=== PATIENT | male | born 1990 | race Two or more races ===

== ENCOUNTER 2020-04-21 16:21 | Inpatient (IN) | payer OTHER ==
[~2020-04-21] VITALS: Ht 193 cm; Wt 133.0 kg
[2020-04-21] MEDS ORDERED: LACTATED RINGERS 1,000 ML IV SCH (16:30)
[2020-04-21] MEDS ORDERED: SODIUM CHLORIDE FLUSH 10ML SYR IVF ONE (16:30)
--- NOTE | 2020-04-21 16:48 | NUR ---
BIBA FROM [place] FOR ABD PAIN, PT FOUND TO HAVE SBO. NG TUBE PLACED IN RIGHT NARE SWING GRINDER, PER EMS REPORT PT HAD 400 ML OUTPUT OF BROWN/BLOODY DRAINAGE. PT HAS HX OF CANCEROUS POLYPS WITH REMOVAL IN 2013, AND NON CANCEROUS POLYPS WITH REMOVAL IN 2018. PT HAS 22 GUAGE PIV PLACED AND RECIEVED 4 MG MORPHINE AND 4MG ZOFRAN AT PREVIOUS FACILITY. PT CURRENTLY HAS NO PAIN IN ABD, JUST COMPLAINTS OF DISCOMFORT FROM NG TUBE PLACEMENT. AT BEDSIDE
[2020-04-21 16:51] LABS: BASOPHILS % (AUTO) 0 % (0-1); EOSINOPHILS % (AUTO) 0 % (1-7); LYMPHOCYTES % (AUTO) 14 % (22-44); MEAN CORPUSCULAR HEMOGLOBIN 28.5 pg (27.5-34.5); MEAN CORPUSCULAR HGB CONC 34.1 g/dL (33.2-36.2); MONOCYTES % (AUTO) 6 % (2-9); NEUTROPHILS % (AUTO) 79 % (42-75); PLATELET COUNT 309 x10^3/uL (130-400); RED BLOOD COUNT 5.86 x10^6/uL (4.38-5.82)
[2020-04-21 16:54] LABS: MD NO
[2020-04-21 17:00] LABS: ALBUMIN 4.2 g/dL (3.4-5.0); ANION GAP 12 mmol/L (5-15); CALCIUM 9.6 mg/dL (8.5-10.1); CHLORIDE 103 mmol/L (98-107)
[2020-04-21] MEDS ORDERED: ESOM40CA PO (17:03)
[2020-04-21] MEDS ORDERED: CARV25TA12 PO (17:03)
[2020-04-21 17:04] LABS: ALANINE AMINOTRANSFERASE 28 U/L (12-78); ALKALINE PHOSPHATASE 63 U/L (45-117); BILIRUBIN,TOTAL 0.6 mg/dL (0.2-1.0); CREATININE 1.27 mg/dL (0.7-1.3); TOTAL PROTEIN 8.3 g/dL (6.4-8.2)
--- NOTE | 2020-04-21 17:04 | NUR ---
MED REC VERIFIED AND UPDATED. PT TAKES 21.875 MG OF COREG BID. TAKES ONE TAB OF 12.5 MG AND THREE 3.125 TABS BID
[2020-04-21 17:06] LABS: INTERNATIONAL NORMALIZED RATIO 1.08 (0.93-1.1); PROTHROMBIN TIME 11.5 Seconds (9.6-11.5)
[2020-04-21] MEDS: POTASSIUM CHLORIDE 40 MEQ in LACTATED RINGERS 1,000 ML IV SCH ×2 (17:09→22:00)
--- NOTE | 2020-04-21 17:17 | NUR ---
PT STATES HE HAS RAPID COVID DONE AT PREVIOUS FACILITY BEFORE TRANSFER AND HAD NEGATIVE RESULT
--- NOTE | 2020-04-21 17:20 | NUR ---
PT TO IMAGING, PER SIOMARA OSEGUERA MAY BE THERE FOR 1-2HRS. ALSO AWARE.
[2020-04-21] MEDS ORDERED: MELATONIN 5 MG TABLET PO PRN (17:30)
[2020-04-21] MEDS ORDERED: ONDANSETRON ODT 4 MG PO PRN (17:30)
[2020-04-21] MEDS ORDERED: ENALAPRILAT 1.25 MG/ML, 2ML IVPush PRN (17:30)
[2020-04-21] MEDS ORDERED: BUTALB/APAP/CAFFEINE 50MG/325MG/40MG PO PRN ×2 (17:30)
[2020-04-21] MEDS ORDERED: ONDANSETRON 2MG/ML, 2ML IVPush PRN (17:30)
[2020-04-21] MEDS ORDERED: GUAIFENESIN/DM 200-20MG, 10ML UDC PO PRN (17:30)
[2020-04-21] MEDS ORDERED: HYDROmorphone 2 MG/ML, 1ML IVPush PRN (17:30)
[2020-04-21] MEDS ORDERED: OXYcodone IR 5MG TABLET PO PRN (17:30)
[2020-04-21] MEDS ORDERED: BACLOFEN 10 MG TABLET PO PRN (17:30)
[2020-04-21] MEDS ORDERED: GABAPENTIN 300 MG CAPSULE PO PRN (17:30)
[2020-04-21] MEDS ORDERED: hydrALAzine 20 MG/ML, 1ML IVPush PRN (17:30)
--- NOTE | 2020-04-21 18:01 | NUR ---
REPORT GIVEN TO JULIAN JEAN-BAPTISTE
--- NOTE | 2020-04-21 18:44 | NUR ---
PT BACK FROM IMAGING
[2020-04-21 19:49] VITALS: BP 130/80
[2020-04-21] MEDS: D5%-0.45NACL+KCL 20MEQ 1,000 ML IV SCH (23:30)
[2020-04-22 01:23] VITALS: BP 132/61
[2020-04-22 05:15] LABS: BASOPHILS % (AUTO) 1 % (0-1); EOSINOPHILS % (AUTO) 1 % (1-7); LYMPHOCYTES % (AUTO) 28 % (22-44); MEAN CORPUSCULAR HEMOGLOBIN 29.3 pg (27.5-34.5); MEAN CORPUSCULAR HGB CONC 34.9 g/dL (33.2-36.2); MEAN PLATELET VOLUME 8.3 fL (7.4-10.4); MONOCYTES % (AUTO) 7 % (2-9); NEUTROPHILS % (AUTO) 64 % (42-75); PLATELET COUNT 257 x10^3/uL (130-400); RED BLOOD COUNT 5.32 x10^6/uL (4.38-5.82)
[2020-04-22 05:24] LABS: ANION GAP 7 mmol/L (5-15); CALCIUM 8.7 mg/dL (8.5-10.1); CHLORIDE 106 mmol/L (98-107)
[2020-04-22 05:25] LABS: CREATININE 1.14 mg/dL (0.7-1.3)
[2020-04-22 05:26] LABS: MD NO
[2020-04-22] MEDS: D5%-0.45NACL+KCL 20MEQ 1,000 ML IV SCH (07:32)
[2020-04-22] MEDS: SENNA/DOCUSATE TABLET PO SCH (07:32)
[2020-04-22 07:38] VITALS: BP 143/80
[2020-04-22] MEDS ORDERED: PANTOPRAZOLE 40 MG IV IVPush SCH (10:00)
[2020-04-22 14:54] VITALS: BP 134/76
[2020-04-23 01:56] VITALS: BP 119/71
[2020-04-23] MEDS ORDERED: PANTOPRAZOLE 20MG TABLET PO SCH (06:00)
[2020-04-23 06:56] VITALS: BP 152/81
[2020-04-23] MEDS: SENNA/DOCUSATE TABLET PO SCH (07:44)
== END 2020-04-23 11:10 | disposition home or self-care (01) | DRG 392 ==
LOC: ED 18:52 → 3N 22:31 → DCLOUNGE 04-23 11:02
PROVIDERS: ADMIT Family Medicine; ATTEND Family Medicine
DX: K52.9 Noninfective gastroenteritis and colitis, unspecified (principal); I42.9 Cardiomyopathy, unspecified; D72.829 Elevated white blood cell count, unspecified; K21.9 Gastro-esophageal reflux disease without esophagitis; E86.0 Dehydration; R53.81 Other malaise; R73.9 Hyperglycemia, unspecified
CPT/HCPCS: 36415; 74250; 80048; 80053; 83690; 83735; 85025; 85610; 99285; G0378; J3480; C9113; J7120